=== PATIENT | male | born 1970 | race American Indian/Alaskan Native ===

== ENCOUNTER 2019-06-20 23:35 | Emergency (ER) | payer SELFPAY ==
[2019-06-21] MEDS ORDERED: predniSONE 20 MG TAB PO ONE (02:37)
[2019-06-21] MEDS ORDERED: IBUPROFEN 600 MG TAB PO ONE (02:37)
[2019-06-21] MEDS ORDERED: ONDANSETRON 4 MG ODT TAB PO ONE (02:37)
[2019-06-21] MEDS ORDERED: oxyCODONE /ACETAMINOPHEN 5-325MG TAB PO ONE (02:37)
--- NOTE | 2019-06-21 04:11 | Cat Scan Report ---
Examination: CT of the lumbar spine without contrast, 06/21/2019 Clinical information: Low back pain after fall Comparison: None Technical: Multiple axial CT images of the lumbar spine were obtained without intravenous contrast. S agittal and coronal reformats were obtained. All CTs at this facility utilize dose reduction techniq ues including automated exposure control, iterative reconstruction and weight based dosing when appro priate to reduce patient radiation dose to as low as reasonable achievable. Findings: There is normal alignment of the lumbar vertebral bodies. Mild multilevel bony degenerative change is present, as evidence by small anterior osteophytes. Limited visualization of intrapelvic contents show no definitive evidence of acute abnormality. Impression: 1. Mild bony degenerative change of the lumbar spine. Signer Name: Bridgette Ascencio MD Signed: 06/21/2019 4:07 AM Workstation Name: [id number]
--- NOTE | 2019-06-21 05:11 | Emergency Department Report ---
ED Back Pain/Injury HPI - General Chief Complaint: Back Pain/Injury Stated Complaint: BACK AND LOWER TORSO PAIN Source: patient Limitations: No Limitations - History of Present Illness Initial Comments: Patient is a 49-year-old -[place] male with no past medical history presents to the ED with content of acute onset persistent severe low back pain that radiates to his right hip for 8 hours after he he slipped and fell down the stairs and had a "pop" sound. Patient states that the pain as well as and that the pain is worse with any movement or active range of motion. Patient states that his second time in 5 days that he slipped and fell down resulting in low back pain. Patient denies loss of consciousness, dizziness, chest pain, shortness of breath, numbness and tingling or weakness of lower extremities bilaterally, urinary or bowel incontinence, saddle paresthesia, headache and neck pain or abdominal pain and hematuria and testicular pain. MD Complaint: back pain, back injury, fall -: Sudden, hour(s) (8) Similar Symptoms Previously: Yes (5 DAYS AGO) Place: home Radiation: none Severity: severe Severity scale (0 -10): 8 Quality: sharp, aching Consistency: constant Improves With: none Worsens With: movement, walking Context: fall Associated Symptoms: denies other symptoms, difficulty walking (due to pain). denies: confusion, weakness, chest pain, numbness, cough, diaphoresis, incontinence, fever/chills, headaches, abdominal pain, loss of appetite, malaise, nausea/vomiting, syncope - Related Data Previous Rx's Medication Instructions Recorded Last Taken Type Ibuprofen [Motrin] 800 mg PO Q8HR PRN #21 tablet 06/21/19 Unknown Rx tiZANidine [Zanaflex 4mg TAB] 4 mg PO Q8H PRN #21 tablet 06/21/19 Unknown Rx traMADoL [Ultram] 50 mg PO Q6HR PRN #12 tablet 06/21/19 Unknown Rx ED Review of Systems ROS: Stated complaint: BACK AND LOWER TORSO PAIN Other details as noted in HPI Constitutional: denies: chills, fever Eyes: denies: eye pain, eye discharge, vision change ENT: denies: ear pain, throat pain Respiratory: denies: cough, shortness of breath, wheezing Cardiovascular: denies: chest pain, palpitations Endocrine: no symptoms reported Gastrointestinal: denies: abdominal pain, nausea, diarrhea Genitourinary: denies: urgency, dysuria Musculoskeletal: back pain (lower back pain), arthralgia (right hip pain). denies: joint swelling Skin: denies: rash, lesions Neurological: denies: headache, weakness, paresthesias Psychiatric: denies: anxiety, depression Hematological/Lymphatic: denies: easy bleeding, easy bruising ED Past Medical Hx - Past Medical History Previous Medical History?: Yes Hx Hypertension: Yes - Surgical History Past Surgical History?: No - Social History Smoking Status: Current Every Day Smoker Substance Use Type: Marijuana - Medications Home Medications: Home Medications Medication Instructions Recorded Confirmed Last Taken Type Ibuprofen [Motrin] 800 mg PO Q8HR PRN #21 tablet 06/21/19 Unknown Rx tiZANidine [Zanaflex 4mg TAB] 4 mg PO Q8H PRN #21 tablet 06/21/19 Unknown Rx traMADoL [Ultram] 50 mg PO Q6HR PRN #12 tablet 06/21/19 Unknown Rx ED Physical Exam - General Limitations: No Limitations General appearance: alert, in no apparent distress - Head Head exam: Present: atraumatic, normocephalic, normal inspection - Eye Eye exam: Present: normal appearance, PERRL, EOMI Pupils: Present: normal accommodation - ENT ENT exam: Present: normal exam, normal orophraynx, mucous membranes moist, TM's normal bilaterally, normal external ear exam - Neck Neck exam: Present: normal inspection, full ROM. Absent: tenderness, lymphadenopathy - Respiratory Respiratory exam: Present: normal lung sounds bilaterally. Absent: respiratory distress, wheezes, rales, rhonchi, chest wall tenderness - Cardiovascular Cardiovascular Exam: Present: regular rate, normal rhythm, normal heart sounds. Absent: systolic murmur, diastolic murmur, rubs, gallop - GI/Abdominal GI/Abdominal exam: Present: soft, normal bowel sounds. Absent: distended, tenderness, guarding, hyperactive bowel sounds, organomegaly - Extremities Exam Extremities exam: Present: normal inspection, full ROM, normal capillary refill - Back Exam Back exam: Present: normal inspection, full ROM, tenderness (palpable lumbosacral paraspinal musculoskeletal tenderness), muscle spasm, paraspinal tenderness - Neurological Exam Neurological exam: Present: alert, oriented X3, CN II-XII intact, normal gait, reflexes normal - Psychiatric Psychiatric exam: Present: normal affect, normal mood - Skin Skin exam: Present: warm, dry, intact, normal color. Absent: rash ED Course Vital Signs 06/21/19 06/21/19 06/21/19 00:44 02:48 02:49 Temperature 98.4 F Pulse Rate 86 Respiratory 18 18 18 Rate Blood Pressure 195/110 O2 Sat by Pulse 96 Oximetry ED Medical Decision Making - Radiology Data Radiology results: report reviewed, image reviewed The L-spine CT scan without contrast shows no acute fractures or subluxations but mild degenerative lumbar disc disease. - Medical Decision Making This is a 49-year-old male who presented to the ED with acute onset persistent severe low back pain after to 2 episodes of a fall, the last of which was 8 hours ago. In the ED, patient is alert and oriented 3 and is in no acute d istress, but appears to be in pain. Patient was treated pain in the ED andl spine CT scan without contrast shows no acute fractures or subluxations but mild degenerative lumbar disc disease. On reevaluation, patient's pain is well- controlled with medications. Patient was discharged home on pain medications and muscle relaxants and was advised to follow-up with his primary care physician in 7-10 days for reevaluation or return to the ED immediately if symptoms get worse. - Differential Diagnosis muscle spasms; muscle strain; low back injury Critical care attestation.: If time is entered above; I have spent that time in minutes in the direct care of this critically ill patient, excluding procedure time. ED Disposition Clinical Impression: Spasm of muscle of lower back Acute low back pain Qualifiers: Back pain laterality: unspecified Sciatica presence: without sciatica Qualified Code(s): M54.5 - Low back pain Disposition: TO HOME OR SELFCARE Is pt being admited?: No Does the pt Need Aspirin: No Condition: Stable Instructions: Muscle Spasm (ED), Acute Low Back Pain (ED), Muscle Strain (ED) Additional Instructions: Take medications with food, drink plenty of fluids and follow-up with your primary care physician in 7-10 days for reevaluation. Return to the ED immediately if symptoms get worse. Prescriptions: Ibuprofen [Motrin] 800 mg PO Q8HR PRN #21 tablet PRN Reason: Pain , Severe (7-10) traMADoL [Ultram] 50 mg PO Q6HR PRN #12 tablet PRN Reason: Pain tiZANidine [Zanaflex 4mg TAB] 4 mg PO Q8H PRN #21 tablet PRN Reason: Muscle Spasm Referrals: [facility] [Outside] - 3-5 Days Forms: Work/School Release Form(ED) Time of Disposition: 05:08 Print Language: MALAWIAN
[2019-06-21 05:19] VITALS: BP 163/99
== END 2019-06-21 05:15 | disposition home or self-care (01) ==
LOC: ED 23:35
DX: M62.830 Muscle spasm of back (principal); I10 Essential (primary) hypertension; F17.200 Nicotine dependence, unspecified, uncomplicated; F12.10 Cannabis abuse, uncomplicated; Z79.899 Other long term (current) drug therapy; W10.8XXA Fall (on) (from) other stairs and steps, initial encounter; Y93.89 Activity, other specified; Y92.89 Other specified places as the place of occurrence of the external cause; Y99.8 Other external cause status
CPT/HCPCS: 72131; 99283; J7512; Q0162